=== PATIENT | female | born 1995 | race Hispanic/Latino ===

== ENCOUNTER 2023-07-07 06:00 | Inpatient (IN) | payer OTHER, MEDICAID ==
[2023-07-04 11:38] LABS: Hematocrit 42.9 % (34.9-44.5); Hemoglobin 14.9 g/dL (12.0-15.5); Platelet Count 214 10x3/uL (150-450)
[2023-07-04 12:09] LABS: Syphilis Antibody Nonreactive (Nonreactive); Syphilis Antibody Index 0.04 S/CO (<1.00 Non-Reactive)
[2023-07-04 12:10] LABS: HBSAg Index 0.22 S/CO (0-0.99); Hep B Surf Ag Non-Reactive S/CO (NonReactive)
[2023-07-07 06:06] VITALS: BMI 23.5
[2023-07-07] MEDS ORDERED: Misoprostol 200 MCG TAB PR PRN (06:26)
[2023-07-07] MEDS ORDERED: Ondansetron PF 4 MG/2 ML Vial IVP PRN ×3 (06:26→09:07)
[2023-07-07] MEDS ORDERED: Tranexamic Acid 1,000 MG/10 ML VIAL IVP PRN (06:26)
[2023-07-07] MEDS ORDERED: Bicitra 30 ML UDCUP PO PRN (06:26)
[2023-07-07] MEDS ORDERED: Diphenoxylate HCl/Atropine Tablet PO PRN (06:26)
[2023-07-07] MEDS ORDERED: hydrALAZINE 20 MG/ML VIAL SLOW IVP PRN ×2 (06:26→11:32)
[2023-07-07] MEDS ORDERED: Carboprost 250 MCG/ML AMP IM PRN (06:26)
[2023-07-07] MEDS ORDERED: Methylergonovine 0.2 MG/ML VIAL IM PRN (06:26)
[2023-07-07] MEDS ORDERED: Promethazine HCl 25 MG/ML VIAL IM PRN ×2 (06:26→09:07)
[2023-07-07] MEDS ORDERED: Oxytocin 30 units/NS 500 ML 500 ML IV SCH (06:30)
[2023-07-07] MEDS ORDERED: Lactated Ringer's 1,000 ML IV SCH (06:30)
[2023-07-07] MEDS: CEFAZOLIN 2 GM in Sodium Chloride 0.9% 100 ML IVPB SCH (07:28)
[2023-07-07] MEDS: Famotidine/PF 20 mg/2ml Vial SLOW IVP PRN (07:28)
[2023-07-07] MEDS ORDERED: diphenhydrAMINE 50 MG/ML VIAL IVP PRN (09:07)
[2023-07-07] MEDS ORDERED: Meperidine HCl/PF 25 MG (1 mL) VIAL SLOW IVP PRN (09:07)
[2023-07-07] MEDS ORDERED: Naloxone HCl 0.4 mg/ml Vial IVP PRN ×2 (09:07)
[2023-07-07] MEDS ORDERED: Moisturizing Cream (Eucerin) 113 GM JAR TOP PRN (09:07)
[2023-07-07] MEDS ORDERED: Promethazine HCl 25 MG SUPP PR PRN (09:07)
[2023-07-07] MEDS ORDERED: Naloxone HCl 0.4 mg/ml Vial IV PRN (09:07)
[2023-07-07] MEDS ORDERED: fentaNYL 50 mcg/mL 1 mL Vial SLOW IVP PRN (09:07)
[2023-07-07] MEDS ORDERED: Communication Order-Pharmacy FS SCH (09:15)
[2023-07-07] MEDS ORDERED: Ketorolac Tromethamine 30 MG (1 mL) VIAL IVP SCH (09:15)
[2023-07-07] MEDS ORDERED: Acetaminophen 325 MG TAB PO PRN (11:32)
[2023-07-07] MEDS ORDERED: Bisacodyl 10 MG SUPP PR PRN (11:32)
[2023-07-07] MEDS ORDERED: Lanolin Ointment 7 GM TUBE TOP PRN (11:32)
[2023-07-07] MEDS: Phenylephrine 40 MG/NS 250 ML 250 ML ONE (11:48)
[2023-07-07] MEDS: Ketorolac Tromethamine 30 MG (1 mL) VIAL ONE (11:48)
[2023-07-07] MEDS: Dexamethasone 4 mg/ml Vial ONE (11:48)
[2023-07-07] MEDS: Dexmedetomidine 200 MCG/2 ML VIAL ONE (11:48)
[2023-07-07] MEDS: Morphine PF 10 MG/10 ML VIAL ONE (11:48)
[2023-07-07] MEDS: Oxytocin 10 UNITS/ML VIAL ONE ×2 (11:48→11:49)
[2023-07-07] MEDS: Boostrix 0.5 ML (Tdap) VIAL (>/=7 yrs of age) IM ONE (11:49)
[2023-07-07] MEDS: Lactated Ringer's 1,000 ML IV SCH (11:49)
[2023-07-07] MEDS: Ondansetron PF 4 MG/2 ML Vial ONE (11:49)
[2023-07-07 14:39] LABS: Hemoglobin 13.4 g/dL (12.0-15.5)
[2023-07-07] MEDS: Ketorolac Tromethamine 30 MG (1 mL) VIAL IVP PRN (14:56)
[2023-07-07] MEDS: Docusate 100 MG CAP PO SCH (21:19)
[2023-07-07] MEDS: diphenhydrAMINE 25 MG CAP PO PRN (21:50)
[2023-07-08] MEDS: Simethicone Chewable 80 MG TAB PO PRN (04:27)
[2023-07-08] MEDS: Ferrous Sulfate 325 MG TAB PO SCH (04:53)
[2023-07-08 05:05] LABS: Hematocrit 39.9 % (34.9-44.5); Hemoglobin 13.5 g/dL (12.0-15.5); Mean Corpuscular HGB CONC 33.8 g/dL (32.0-36.0); Mean Corpuscular Hemoglobin 33.9 pg (27.0-33.0); Mean Corpuscular Volume 100.3 fl (81.6-98.3); Mean Platelet Volume 12.7 fl (7.4-10.4); Platelet Count 210 10x3/uL (150-450); RBC Distribution Width 14.6 % (11.5-14.5); Red Blood Cell (RBC) Count 3.98 10x6/uL (3.90-5.03); White Blood Cell (WBC) Count 17.8 10x3/uL (3.5-10.5)
[2023-07-08] MEDS: HYDROcodone/Acetaminophen 5/325 mg Tablet PO PRN (08:30)
[2023-07-08] MEDS: Enoxaparin 40 MG (0.4 mL) SYRINGE SC SCH (08:30)
[2023-07-08] MEDS: Prenatal Vitamin 1 TAB PO SCH (08:32)
[2023-07-08] MEDS ORDERED: DOLUTEGRAVIR PO SCH (09:00)
[2023-07-08] MEDS ORDERED: [UNRECOGNIZED DRUG - OTHER] PO SCH (09:00)
[2023-07-08] MEDS ORDERED: ABACAVIR PO SCH (09:00)
[2023-07-08] MEDS ORDERED: LAMIVUDI PO SCH (09:00)
[2023-07-08] MEDS: Simethicone Chewable 80 MG TAB PO SCH (09:10)
[2023-07-08] MEDS: Ibuprofen 800 MG TAB PO SCH (13:52)
[2023-07-09 07:53] VITALS: BP 103/60; TEMP 98.3
[2023-07-09] MEDS: HYDROcodone/Acetaminophen 5/325 mg Tablet PO PRN (12:27)
[2023-07-09 14:17] LABS: LOG10 HIV-1 RNA 1.602 (.)
[2023-07-11 07:20] LABS: QuantiFERON-TB Gold Plus Negative (Negative)
== END 2023-07-09 14:45 | disposition home or self-care (01) | DRG 787 ==
LOC: CSHLD 06:00 → CSHPP 11:37
PROVIDERS: ADMIT Student in an Organized Health Care Education/Training Program; ATTEND Student in an Organized Health Care Education/Training Program
PROC: 10D00Z1 Extraction of Products of Conception, Low, Open Approach (ICD-10-PCS; principal; 2023-07-07)
DX: O32.1XX0 Maternal care for breech presentation, not applicable or unspecified (principal); B20 Human immunodeficiency virus [HIV] disease; O98.72 Human immunodeficiency virus [HIV] disease complicating childbirth; Z3A.39 39 weeks gestation of pregnancy; Z37.0 Single live birth; D50.9 Iron deficiency anemia, unspecified; O99.02 Anemia complicating childbirth
CPT/HCPCS: 36415; 51702; 85014; 85018; 85027; 85049; 86480; 86780; 86850; 86900; 86901; 87340; 87536; J1100; J1650; J1885; J2274; J2405; J2590; J3490; S0028